=== PATIENT | female | born 1990 | race Caucasian/White ===

== ENCOUNTER 2017-01-10 19:07 | Emergency (ER) | payer BC ==
[~2017-01-10] VITALS: Ht 160 cm; Wt 70.4 kg
[~2017-01-10 19:07] MED LIST: VICODIN 5-3001 EACH PO
[2017-01-10 19:55] LABS: HEMATOCRIT 39.4 % (36.0-46.0); MCH 28.2 PG (29.0-34.0); MCHC 32.2 G/DL (30.0-36.0); MCV 87.6 FL (83-99); PLATELET COUNT 286 K/uL (156-360); RBC DIS.WIDTH-SD 41.3 % (39-53); WHITE BLOOD COUNT 9.7 K/uL (4.1-10.2)
[2017-01-10 20:03] LABS: CHLORIDE 107 mEq/L (99-109); POTASSIUM 4.1 mEq/L (3.7-5.4); SODIUM 139 mEq/L (136-147)
[2017-01-10 20:05] LABS: GLUCOSE 94 mg/dL (70-99)
[2017-01-10 20:06] LABS: ANION GAP 10 MEQ/L (2-14)
[2017-01-10 20:07] LABS: TOTAL BILIRUBIN 0.2 mg/dL (0.0-1.0)
[2017-01-10 20:09] LABS: ALKALINE PHOSPHATASE 66 IU/L (3-129); GFR ESTIMATE (CALCULATED) > 59 mL/min/
[2017-01-10 20:10] LABS: UREA NITROGEN (BUN) 10 mg/dL (9-23)
[2017-01-10 20:18] LABS: QUANTITATIVE HCG < 4.0 MIU/ML
[2017-01-10 20:46] LABS: ADD MIUA? YES; BILIRUBIN NEGATIVE; BLOOD NEGATIVE; COLOR YELLOW ((YELLOW)); GLUCOSE (STRIP) NEGATIVE; KETONES NEGATIVE; LEUKOCYTES TRACE; NITRITE NEGATIVE; PROTEIN (STRIP) NEGATIVE; SPECIFIC GRAVITY 1.026 (1.000-1.030); UROBILINOGEN 0.2 MG/DL (0.2-1.0)
[2017-01-10 20:53] LABS: BACTERIA RARE /HPF; EPITHELIAL CELLS RARE /HPF; MUCUS TRACE /LPF; RED BLOOD CELLS 0-5 /HPF (0-5); UCUL ADDED? NO; WHITE BLOOD CELLS 0-5 /HPF (0-5)
[2017-01-10] MEDS ORDERED: ZOFRAN ODT4 MG PO (21:38)
[2017-01-10 22:00] VITALS: BP 128/79
== END 2017-01-10 21:40 | disposition home or self-care (01) ==
LOC: EME 19:07
DX: K59.00 Constipation, unspecified (principal); R10.31 Right lower quadrant pain
CPT/HCPCS: 74177; 80053; 81003; 84702; 85027; 99281; 99284; J2270; J2405; J7030